=== PATIENT | male | born 1975 | race Caucasian/White ===

== ENCOUNTER 2021-01-15 15:59 | Emergency (ER) | payer OTHER, SELFPAY ==
[2021-01-15 16:43] VITALS: BP 128/78; PULSE 56; RESP 16; TEMP 36.9; O2SAT 97; BMI 26.4
--- NOTE | 2021-01-15 17:16 | HMH.EDUTC ---
[facility] [place] Disposition Clinical Impression: Dental abscess Disposition: Home, Self-Care Condition on Discharge: Good Instructions: Tooth Abscess Additional Instructions: Follow up with your dentist. Take the medications as directed. Take the ibuprofen for pain. Follow up with your primary care physician. GO TO THE ER FOR ANY WORSENING SYMPTOMS OR CONCERNS. Prescriptions: Ibuprofen [Ibuprofen 800mg Tablet] 800 mg PO Q8HP PRN #30 tab PRN Reason: Moderate Pain Transmission Status: Received by [id number] Amoxicillin/Potassium Clav [Augmentin 875-125 Tablet] 1 tab PO Q12H 10 Days #20 tab Transmission Status: Received by [id number] Referrals: Provider,Referral, [Primary Care Provider] - Time of Disposition: : Medical Decision Making - Medical Records Medical records reviewed: No: I reviewed the patient's medical records. - Marquise Inquiry Pt receiving controlled substance: No Vital Signs: 01/15/21 16:43 Temperature 98.4 F Temperature Source Oral Pulse Rate [Right Brachial] 56 L Respiratory Rate 16 Blood Pressure [Right Arm] 128/78 Blood Pressure Mean [Right Arm] 94 Blood Pressure Source [Right Arm] Automatic Cuff Blood Pressure Position [Right Arm] Sitting 02 Sat by Pulse Oximetry 97 Oxygen Delivery Method Room Air Orders (Tests/Meds): ED MEDICATIONS Discontinued Medications Generic Name Dose Route Start Last Admin Trade Name Freq PRN Reason Stop Dose Admin Ceftriaxone Sodium 1 gm 01/15/21 17:18 Ceftriaxone 1gm Vial IM 01/15/21 17:19 ONCE ONE Lidocaine HCl 0 ml 01/15/21 17:18 Lidocaine 1% 5ml Pf Vial IM 01/15/21 17:19 ONCE ONE [facility] [place] HPI - General Stated complaint: DENTAL PAIN Time Seen by Provider: 01/15/21 17:16 Mode of Arrival: Ambulatory Source of Information: Patient Description of Symptoms (Recalled from Triage Doc. by RN): toothache HEENT Symptoms (Recalled from RN notes): No Resp Symptoms (Recalled from RN notes): No Skin Symptoms (Recalled from RN notes): No MS Symptoms (Recalled from RN notes): No Functional Status (Recalled from RN notes): yes - History of Present Illness Provider Complaint: He c/o left lower jaw dental pain for the past 3 days. He has swelling around the tooth. He states that he has multiple decayed teeth. - Related Data Previous Rx's Medication Instructions Recorded Amoxicillin/Potassium Clav 1 tab PO Q12H 10 Days #20 tab 01/15/21 [Augmentin 875-125 Tablet] Ibuprofen [Ibuprofen 800mg 800 mg PO Q8HP PRN #30 tab 01/15/21 Tablet] Allergies Allergy/AdvReac Type Severity Reaction Status Date / Time No Known Allergies Allergy Verified 09/13/17 08:22 - Worker's Comp Is this a Worker's Comp case?: No Is this an H Worker's Comp?: No Is this a Fausto Worker's Comp?: No [facility] History - Hepatitis A Screen Drug use history?: No High risk sexual behaviors?: No History of sexually transmitted infection?: No Currently employed?: No Childcare worker?: No Do you have indoor plumbing?: Yes Do you have electricity?: Yes Attestation statement:: This patient has been screened for Hepatitis A risk factors. I have reviewed the patient's past medical history: Yes ROS Obtained: Yes All systems reviewed & no additional complaints - Constitutional Constitutional: Denies chills, Denies fever(s) - Eyes Eyes: Denies eye discharge - ENT Ears, Nose, Mouth, and Throat: Reports as per HPI - Cardiovascular Cardiovascular: Denies chest pain - Respiratory Respiratory: Denies chest congestion, Denies cough Physical Exam - General General appearance: alert, in no apparent distress - Head Head exam: atraumatic, normocephalic, normal inspection - Eye Eye exam: Present: normal appearance, PERRL, EOMI - ENT ENT exam: Present: mucous membranes moist, TM's normal bilaterally, normal external ear exam - Expanded ENT Exam Nose exam: Present: sinus tendern
[2021-01-15 17:31] VITALS: BP 128/78; PULSE 56; RESP 18; TEMP 36.9; O2SAT 97
== END 2021-01-15 17:31 | disposition home or self-care (01) ==
PROVIDERS: Emergency Provider Nurse Practitioner Family
DX: K04.7 Periapical abscess without sinus (principal)
CPT/HCPCS: 96372; 99202; G0463

== ENCOUNTER 2021-03-30 18:22 | Emergency (ER) | payer BC, SELFPAY ==
[2021-03-30 18:23] VITALS: BP 141/89; PULSE 85; RESP 18; TEMP 37.1; O2SAT 98; BMI 26.4
--- NOTE | 2021-03-30 18:58 | HMH.EDUTC ---
[facility] [place], [place] Disposition Clinical Impression: Need for Tdap vaccination Laceration of left foot excluding toes Qualifiers: Encounter type: initial encounter Qualified Code(s): S91.312A - Laceration without foreign body, left foot, initial encounter Disposition: Home, Self-Care Condition on Discharge: Good Instructions: How to Care for a Laceration After Repair, DI for Laceration Repair -- Simple Additional Instructions: Keep the wound clean and dry. Keep a dressing on it if you are going to be getting it dirty. Watch the for signs of infection, such as redness, swelling, drainage, fever. etc. Take tylenol or ibuprofen for pain. Follow up with your regular doctor. I put in a referral to Dr. Artis (podiatry). If you have any issues or problems, please follow up with her. Call her office to make an appointment. Return in 12 days to have the sutures removed. GO TO THE ER FOR ANY WORSENING SYMPTOMS OR CONCERNS. Prescriptions: cephALEXin [cephALEXin 500mg capsule] 500 mg PO Q6H 10 Days #40 cap Transmission Status: Received by [id number] Referrals: Provider,Kisha, [Primary Care Provider] - Libia Artis DPM [Staff Physician] - Time of Disposition: 19:27 Medical Decision Making - Medical Records Medical records reviewed: No: I reviewed the patient's medical records. - Marquise Inquiry Pt receiving controlled substance: No Vital Signs: 03/30/21 18:23 03/30/21 19:25 Temperature 98.7 F 98.7 F Temperature Source Oral Pulse Rate 85 Pulse Rate [Radial] 85 Respiratory Rate 18 18 Blood Pressure 141/89 H Blood Pressure [Right Arm] 141/89 H Blood Pressure Mean [Right Arm] 106 Blood Pressure Position [Right Arm] Sitting 02 Sat by Pulse Oximetry 98 Oxygen Delivery Method Room Air Orders (Tests/Meds): ED MEDICATIONS Discontinued Medications Generic Name Dose Route Start Last Admin Trade Name Freq PRN Reason Stop Dose Admin Lidocaine HCl 0 ml 03/30/21 19:24 03/30/21 19:24 Lidocaine 1% Pf 2ml Ampule SQ 03/30/21 19:25 3 mg ONCE ONE Administration [facility] [place] [place] HPI - General Stated complaint: AO02/03 cut left foot with chainsaw Time Seen by Provider: 03/30/21 18:45 Mode of Arrival: Ambulatory Source of Information: Patient Limitations: No Limitations Description of Symptoms (Recalled from Triage Doc. by RN): PT C/O LACERATION TO LT LATERAL FOOT STATES USING A CHAINSAW AND HAND SLIPPED CUTTING FOOT. NO ACTIVE BLEEDING NOTED - History of Present Illness Provider Complaint: He states that he was cutting a tree up with a chain saw when he slipped and his left foot bumped into the chainsaw blade. He has a laceration on the dorsal aspect of that foot. He denies any other injury. He is walking on the foot without difficulty. His tetanus immunization is not up to date. - Related Data Previous Rx's Medication Instructions Recorded Amoxicillin/Potassium Clav 1 tab PO Q12H 10 Days #20 tab 01/15/21 [Augmentin 875-125 Tablet] Ibuprofen [Ibuprofen 800mg 800 mg PO Q8HP PRN #30 tab 01/15/21 Tablet] cephALEXin [cephALEXin 500mg 500 mg PO Q6H 10 Days #40 cap 03/30/21 capsule] Allergies Allergy/AdvReac Type Severity Reaction Status Date / Time No Known Allergies Allergy Verified 09/13/17 08:22 [facility] History - Hepatitis A Screen Attestation statement:: This patient has been screened for Hepatitis A risk factors. I have reviewed the patient's past medical history: Yes ROS Obtained: Yes All systems reviewed & no additional complaints - Constitutional Constitutional: Denies chills, Denies fever(s) - Musculoskeletal Musculoskeletal: Denies joint pain - Integumentary/Breasts Skin/Breast: Reports as per HPI - Neurologic Neurologic: Denies tingling/numbness/burning sensations Physical Exam - General General appearance: alert, in no apparent distress - Head Head exam: atraumatic, normocephalic, normal inspection - Eye Eye exam
[2021-03-30 19:25] VITALS: BP 141/89; PULSE 85; RESP 18; TEMP 37.1
== END 2021-03-30 19:39 | disposition home or self-care (01) ==
PROVIDERS: Emergency Provider Nurse Practitioner Family
DX: S91.312A Laceration without foreign body, left foot, initial encounter (principal); W29.3XXA Contact with powered garden and outdoor hand tools and machinery, initial encounter; Y92.018 Other place in single-family (private) house as the place of occurrence of the external cause
CPT/HCPCS: 12002; 96372; 99202; G0463

== ENCOUNTER 2024-03-01 08:44 | Emergency (ER) | payer BC, SELFPAY ==
[2024-03-01 08:45] VITALS: BP 161/99; PULSE 75; RESP 18; TEMP 36.5; O2SAT 95; BMI 26.4
--- NOTE | 2024-03-01 08:53 | HMH.EDGENADL ---
Discharge Plan Disposition Patient Disposition: Home, Self-Care Prescriptions Prescriptions: New amoxicillin-pot clavulanate [Augmentin] 500-125 mg tablet 1 tab PO BID Qty: 10 0RF ibuprofen 800 mg tablet 800 mg PO TID PRN (Reason: tooth pain) Qty: 20 0RF Rx Instructions: Please take with food No Action ibuprofen 800 MG tablet 800 mg PO Q8HP PRN (Reason: Moderate Pain) Qty: 30 0RF amoxicillin-pot clavulanate 1 EACH tablet 1 tab PO Q12H 10 Days Qty: 20 0RF cephalexin 500 MG capsule 500 mg PO Q6H 10 Days Qty: 40 0RF Referrals Follow up/Referrals: Provider,Referral, MD [Primary Care Provider] - See instructions Activity Restrictions/Add. Instructions Additional Instructions/Restrictions: At this time it was felt you are safe to be discharged home. If new or worsening symptoms please do not hesitate to return the emergency department. Please take medications as prescribed and follow-up with a dentist as soon as you can for definitive treatment. Clinical Impressions Clinical Impression: Pain in tooth, Dental caries Print Language Print Language: Puerto Rican Discharge ED Provider: Dank Ley General Adult HPI General Stated complaint: toothache Time Seen by Provider: 03/01/24 08:49 History of Present Illness HPI narrative: Patient is a 49-year-old male with no pertinent past medical history presents emergency department for evaluation of tooth pain. Onset was acute over the last night, in the front on the bottom of his teeth. No reported difficulty swallowing or other acute complaints at this time. Related Data Previous Rx's ?Medication ?Instructions ?Recorded amoxicillin 875 mg-potassium 1 tab PO Q12H 10 days #20 tabs 01/15/21 clavulanate 125 mg tablet ibuprofen 800 mg tablet 800 mg PO Q8HP PRN Moderate Pain 01/15/21 #30 tabs cephalexin 500 mg capsule 500 mg PO Q6H 10 days #40 caps 03/30/21 amoxicillin 500 mg-potassium 1 tab PO BID dental caries #10 tabs 03/01/24 clavulanate 125 mg tablet (Augmentin) ibuprofen 800 mg tablet 800 mg PO TID PRN tooth pain #20 03/01/24 tabs Allergies Allergy/AdvReac Type Severity Reaction Status Date / Time No Known Allergies Allergy Verified 09/13/17 08:22 [facility] Disclaimer: The information contained in this section may have been updated after the patient was seen, as this information can be updated by other users. Social History Smoking Status: Current every day smoker alcohol intake: never current occupational status: other Travel in the last 8 weeks: None ROS Obtained: Yes Systems reviewed as appropriate & no additional complaints except as documented Physical Exam General General appearance: alert and in no apparent distress Head Head exam: atraumatic and normocephalic Eye Eye exam: Present PERRL ENT ENT exam: Present mucous membranes moist and other (Multiple dental caries of different stages scattered throughout the mandible and maxilla. Tooth tenderness over the left anterior mandibular teeth. No fluctuance. No elevation of the floor the mouth.) Neck Neck exam: Present normal inspection and full ROM Chest Chest inspection: Present normal inspection and symmetric chest wall rise Respiratory Respiratory exam: Absent respiratory distress Cardiovascular Cardiovascular exam: Present regular rate and normal rhythm Extremities Exam Extremities exam: Present normal inspection Neurological Exam Neurological exam: Present alert Psychiatric Psychiatric exam: Present normal affect Skin Skin exam: Present warm and dry Medical Decision Making Medical Records Screening: Per USPSTF and CDC recommendations, given the prevalence of disease in our region, it is our hospital?s policy to screen for HIV and viral Hepatitis for all patients aged 18 and over and those with ongoing risk factors. Marquise Inquiry Pt receiving controlled substance: No Orders (Tests/Meds): ED MEDICATIONS Generic Name Dose Route Start Last Admin Trade Name Freq PRN Reason Stop Dose Admin Lidocaine HCl 15 ml 03/01/24 08:49 Lidocaine 2% Viscous Ruth 15ml Udc PO 03/01/24 08:50 ONCE ONE Medical Decision Narrative: In summary patient is a 49-year-old male past medical history described above who presents emergency department for evaluation of tooth pain. Patient is hemodynamically stable nontoxic-appearing upon arrival, afebrile. Based on history and physical exam patient has multiple dental caries. I have no concern for deep space infection or periapical abscess to workup with labs, imaging, drainage was considered but will be deferred at this time. Social determinants of health patient is have limited expedited access to dental care in the community. Initial inventions include dental balls. Patient be treated with a course of Augmentin and high-dose ibuprofen and will try to get in with his dentist within the next week and was given return precautions and verbalized understanding. Hot Mix Operator disclaimer Much of this encounter note is an electronic front end application developer spoken language to printed text. Electronic front end application developer of the spoken language may permit errors. Although I have reviewed the note, some errors may still exist. Critical Care Critical Care Time Critical Care Time: No
[2024-03-01] MEDS: LIDOCAINE 2% VISCOUS SOL 15ML UDC 15 ML PO (08:58)
[2024-03-01 09:10] VITALS: BP 129/94; PULSE 89; RESP 12; TEMP 36.6
== END 2024-03-01 09:11 | disposition home or self-care (01) ==
LOC: ER 09:04
PROVIDERS: Emergency Provider Emergency Medicine
DX: K02.9 Dental caries, unspecified (principal); K08.89 Other specified disorders of teeth and supporting structures
CPT/HCPCS: 99283

== ENCOUNTER 2025-01-16 19:19 | Emergency (ER) | payer SELFPAY ==
[2025-01-16 19:28] VITALS: BP 150/91; PULSE 68; RESP 18; TEMP 36.9; O2SAT 99; BMI 28.5
[2025-01-16 19:34] VITALS: BP 150/91; PULSE 68; RESP 18; TEMP 36.9; O2SAT 99
--- NOTE | 2025-01-16 19:44 | XR_ITS ---
PROCEDURE INFORMATION: Exam: XR Chest Exam date and time: 01/16/2025 8:12 PM Age: 49 years old Clinical indication: Other: R rib pain fell on log TECHNIQUE: Imaging protocol: Radiologic exam of the chest. Views: 1 view. COMPARISON: No relevant prior studies available. FINDINGS: Lungs: Unremarkable. No consolidation. Pleural spaces: Unremarkable. No pleural effusion. No pneumothorax. Heart/Mediastinum: Unremarkable. No cardiomegaly. Bones/joints: Old healed left rib fractures. No acute fracture. IMPRESSION: No acute abnormality.
--- NOTE | 2025-01-16 19:45 | ED_ITS ---
<Statement entered by Kishore Matos DO - 01/16/25 21:58> I was consulted by the YURI, and we discussed the complexity of problems being addressed. I approved the treatment and management plan for this patient's care in the emergency department, thus performing a substantive portion of the medical decision making. Kishore Matos DO I reviewed this case with the YURI. This patient had an injury to his chest wall. We did entertain the idea of obtaining a CT scan versus a chest x-ray. However, the patient was able to pull the maximum out of volume on incentive spirometry therefore I do not feel that there is a clinical indication to obtain a CT scan as even if he does have a couple of rib fractures he would not necessitate admission to the hospital. Therefore we decided to proceed with a chest x-ray to ensure that he does not have evidence of a pneumothorax. There is no pneumothorax on my independent read. Initially, the patient was complaining of pain that seems consistent with sciatica so we did treat the patient symptomatically and obtained a postvoid residual which showed no evidence of urinary retention. I do not feel this patient is experiencing a life-threatening spinal cord emergency at this time. Patient was discharged home with medications for symptomatic Introl and instructions to follow-up with his primary care provider Discharge Plan Disposition Patient Disposition: Home, Self-Care Prescriptions Prescriptions: New methocarbamol 500 mg tablet 500 mg PO Q8H Qty: 90 0RF lidocaine [Lidoderm] 5 % adhesive patch,medicated 1 patch topical DAILY Qty: 15 0RF Rx Instructions: leave on most painful area for up to 12 hrs No Action ibuprofen 800 MG tablet 800 mg PO Q8HP PRN (Reason: Moderate Pain) Qty: 30 0RF amoxicillin-pot clavulanate 1 EACH tablet 1 tab PO Q12H 10 Days Qty: 20 0RF cephalexin 500 MG capsule 500 mg PO Q6H 10 Days Qty: 40 0RF amoxicillin-pot clavulanate [Augmentin] 500-125 mg tablet 1 tab PO BID Qty: 10 0RF ibuprofen 800 mg tablet 800 mg PO TID PRN (Reason: tooth pain) Qty: 20 0RF Rx Instructions: Please take with food Referrals Follow up/Referrals: Tima Clark DO [Staff Physician, Family Practice] - See instructions Activity Restrictions/Add. Instructions Additional Instructions/Restrictions: Today you were evaluated in the emergency department. The x-ray of your chest does not show any rib fractures. Please continue to use Tylenol Motrin and the prescribed muscle relaxer. You may also use the Lidoderm patches on your back if needed. Please follow-up with PCP, if you do not have a PCP I placed Dr. Clark on your discharge papers you may call him for a follow-up appointment. Please return to the ED for worsening of your condition. Clinical Impressions Clinical Impression: Rib pain, Back pain Instructions Patient Instructions: Low Back Pain Print Language Print Language: Urdu Discharge ED Provider: Kishore Matos Adult HPI General Chief complaint: PAIN Stated complaint: back of legs hurt , headache, rib pain Time Seen by Provider: 01/16/25 19:29 Mode of Arrival: Ambulatory Source of Information: Patient Description of Symptoms (Recalled from ER Triage Doc. by RN): PT presents tot ED for evaluation of back pain. PT stated it started 3 days ago. Denies injury. PT works at a [employer]. PT took an Oxy 10mg at 1200 on this date History of Present Illness HPI narrative: patient is a 49-year-old male with no significant PMH who presents to the ED for complaints of right rib pain x 1 week and lower back pain that radiates down his legs. Patient states that 1 week ago he tripped and fell over a log, landing on his right rib area. He states that after the fall he had had mild, intermittent lower back pain that radiates down the posterior aspect of his legs feels like a burning sensation. He reports that 2 days ago he was pulling a heavy chain attached to a log when he felt a pop in his right rib area which made the rib pain worse than it already was. Related Data Previous Rx's ?Medication ?Instructions ?Recorded amoxicillin 875 mg-potassium 1 tab PO Q12H 10 days #20 tabs 01/15/21 clavulanate 125 mg tablet ibuprofen 800 mg tablet 800 mg PO Q8HP PRN Moderate Pain 01/15/21 #30 tabs cephalexin 500 mg capsule 500 mg PO Q6H 10 days #40 ca ps 03/30/21 amoxicillin 500 mg-potassium 1 tab PO BID dental allison s #10 tabs 03/01/24 clavulanate 125 mg tablet (Augmentin) ibuprofen 800 mg tablet 800 mg PO TID PRN tooth pain #20 03/01/24 tabs lidocaine 5 % topical patch 1 patch topical DAILY #15 ea 01/16/25 (Lidoderm) methocarbamol 500 mg tablet 500 mg PO Q8H #90 tabs Allergies Allergy/AdvReac Type Severity Reaction Status Date / Time No Known Allergies Allergy Verified 09/13/17 08:22 [facility] Disclaimer: The information contained in this section may have been updated after the patient was seen, as this information can be updated by other users. Social History (Updated 03/01/24 @ 08:56 by Dank Ley MD) Smoking Status: Current every day smoker alcohol intake: never current occupational status: other Travel in the last 8 weeks?: None Have you lived/traveled outside [place] in past 30 days?: No Contact w/someone who lives/traveled outside US past 30 days?: No Exposure to someone with infectious disease in past 14 days?: No Do you have a fever (greater than 100.4 F or 38 C)?: No Have you tested positive for COVID-19?: No Exposed to someone with COVID-19 in past 14 days?: No Do you have a sore throat?: No Do you have a cough?: No Do you have any weakness?: No Do you have any diarrhea?: No Are you experiencing any unusual bleeding?: No Do you have any muscle aches/pain?: No Do you have any abdominal pain?: No Are you experiencing loss of taste or smell?: No ROS Obtained: Yes Systems reviewed as appropriate & no additional complaints except as documented Physical Exam General General appearance: alert Head Head exam: atraumatic Eye Eye exam: Present PERRL Neck Neck exam: Present full ROM Chest Chest inspection: Present other (right rib tenderness ) Respiratory Respiratory exam: Present normal lung sounds bilaterally; Absent respiratory distress, wheezes or accessory muscle use Cardiovascular Cardiovascular exam: Present regular rate Abdominal Exam Abdominal exam: Present soft Extremities Exam Extremities exam: Present full ROM Back Exam Back exam: Present normal inspection and full ROM; Absent tenderness, CVA tenderness (R), CVA tenderness (L), paraspinal tenderness or vertebral tenderness Neurological Exam Neurological exam: Present alert, oriented X3 and normal gait; Absent motor sensory deficit Medical Decision Making Medical Records Screening: Per USPSTF and CDC recommendations, given the prevalence of disease in our region, it is our hospital?s policy to screen for HIV and viral Hepatitis for all patients aged 18 and over and those with ongoing risk factors. Marquise Inquiry Pt receiving controlled substance: No Vital Signs: 01/16/25 19:28 01/16/25 19:34 01/16/25 20:54 Temperature 98.5 F 98.5 F 98.3 F Temperature Source Oral Oral Pulse Rate 68 57 L Pulse Rate [Right] 68 Respiratory Rate 18 18 16 Blood Pressure 150/91 H 140/93 H Blood Pressure [Right Arm] 150/91 H Blood Pressure Mean [Right Arm] 110 02 Sat by Pulse Oximetry 99 99 Oxygen Delivery Method Room Air Room Air Room Air Orders (Tests/Meds): ED MEDICATIONS Discontinued Medications Generic Name Dose Route Start Last Admin Trade Name Sebastián PRN Reason Stop Dose Admin Ketorolac Tromethamine 15 mg 01/16/25 19:37 01/16/25 19:59 Ketorolac 15mg/Ml Vial IM 01/16/25 19:38 15 mg ONCE ONE Administration Lidocaine 1 each 01/16/25 19:37 01/16/25 19:59 Lidocaine 5% Transdermal Patch TD 01/16/25 19:38 1 each ONCE ONE Administration Methocarbamol 500 mg 01/16/25 19:40 01/16/25 19:59 Methocarbamol 500mg Tablet PO 01/16/25 19:41 500 mg ONCE ONE Administration ORDERS Category Date Time Status CXR --portable [XR chest portable] Stat Exams 01/16/25 19:44 Completed Medical Decision Narrative: In summary, patient is a 49-year-old male with no significant PMH who presents to the ED for complaints of right rib pain x 1 week and lower back pain that radiates down his legs. Patient states that 1 week ago he tripped and fell over a log, landing on his right rib area. He states that after the fall he had had mild, intermittent lower back pain that radiates down the posterior aspect of his legs feels like a burning sensation. He reports that 2 days ago he was pulling a heavy chain attached to a log when he felt a pop in his right rib area which made the rib pain worse than it already was. He has not taken anything for pain. He denies having a PCP. Upon initial evaluation he is alert, oriented and cooperative. He is stable. Physical exam unremarkable for any lower back tenderness, thoracic tenderness or C-spine tenderness. No step-offs or deformities. Patient does have right rib area tenderness, no hematoma or ecchymosis noted. Breath sounds present bilaterally and clear. Denies fever, chills, body aches, drug injection, incontinence of bowel or bladder, saddle anesthesia. Differential diagnosis include rib pain, fracture, pneumo, pneumonia, among others. Discussed with patient we will symptomatically manage with Toradol, Lidoderm patch and Robaxin. We will obtain a chest x-ray to ensure no pneumothorax. Patient was given an incentive spirometer and was able to pull the highest amount. Chest x-ray unremarkable for any acute fracture. Upon reassessment, patient states his pain has significantly improved. We discussed that he will need to follow-up with the PCP and that I suggested Dr. Clark, he states he has heard of Dr. Clark and will call him for a follow-up appointment. We discussed that I sent Lidoderm patches and methocarbamol to the pharmacy and we discussed use. I advised him he can continue to use acetaminophen and ibuprofen [id number] for symptomatic relief. Discussed return precautions to the ED and he verbalized understanding. Upon discharge, he was hemodynamically stable and ambulatory from the ED. Critical Care Critical Care Time Critical Care Time: No
--- NOTE | 2025-01-16 19:51 | PC.NURSE ---
Post void scan performed. 0ml of Urine detected in bladder
[2025-01-16] MEDS: KETOROLAC 15MG/ML VIAL 15 MG IM (19:59)
[2025-01-16] MEDS: METHOCARBAMOL 500MG TABLET 500 MG PO (19:59)
[2025-01-16] MEDS: LIDOCAINE 5% TRANSDERMAL PATCH 1 EACH TD (19:59)
[2025-01-16 20:54] VITALS: BP 140/93; PULSE 57; RESP 16; TEMP 36.8; O2SAT 100
== END 2025-01-16 20:59 | disposition home or self-care (01) ==
PROVIDERS: Emergency Provider Student in an Organized Health Care Education/Training Program
DX: R07.81 Pleurodynia (principal); M54.59 Other low back pain; F17.210 Nicotine dependence, cigarettes, uncomplicated; W01.10XA Fall on same level from slipping, tripping and stumbling with subsequent striking against unspecified object, initial encounter
CPT/HCPCS: 71045; 96372; 99284; J1885